=== PATIENT | female | born 1985 | race Caucasian/White ===

== ENCOUNTER 2018-02-04 15:52 | Emergency (ER) | payer OTHER ==
[2018-02-04 16:07] VITALS: BP 123/76; PULSE 96; TEMP 98.6; BMI 23.9
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
== END 2018-02-04 16:53 | disposition home or self-care (01) ==
LOC: FER 15:52
DX: T14.8XXA Other injury of unspecified body region, initial encounter (principal); V43.52XA Car driver injured in collision with other type car in traffic accident, initial encounter; Y93.89 Activity, other specified; Y92.410 Unspecified street and highway as the place of occurrence of the external cause
CPT/HCPCS: 84703; 99282-25